=== PATIENT | female | born 1935 | race Caucasian/White ===

== ENCOUNTER 2019-01-18 12:21 | Outpatient (CLI) | payer MEDICARE, SELFPAY ==
[2019-01-18] VITALS (8 sets, daily range): BP systolic 111–148; BP diastolic 52–74; PULSE 84–92; RESP 16; TEMP 36.6; O2SAT 97–100
--- NOTE | 2019-01-18 12:23 | DI.RAD.S_ITS ---
PROCEDURE: XR LUMBAR SPINE MIN 4V INDICATIONS: Spinal stenosis, left hip pain TECHNIQUE: 5 views of the lumbar spine were acquired. COMPARISON: [facility], CR, XR PELVIS W LATERAL HIP LT, 10/20/2016, 10:23. [facility], CT, CT ABDOMEN PELVIS WITHOUT CONTRAST, 07/31/2018, 18:35. [facility], MR, L-SPINE WITHOUT CONTRAST, 03/27/2017, 15:09. FINDINGS: Bones: 5 [id number] vertebrae are present. There is severe levoscoliosis with apex at L3. No vertebral body compression fractures. No suspicious bony lesions. Severe degenerative disc disease at L1-L2, L2-L3, L3-L4 and L5-S1. There is severe facet arthropathy at L2-L3, L3-L4, L4-L5 and L5-S1. Soft tissues: Overlying bowel gas pattern is normal. Vascular calcifications consistent with atherosclerosis. Oblique images: No pars defects. IMPRESSION: 1. Severe scoliosis. 2. Severe degenerative disc disease. 3. Severe facet arthropathy. Dictated by: Italia Rodríguez M.D. on 01/18/2019 at 17:21 Approved by: Italia Rodríguez M.D. on 01/18/2019 at 17:25
--- NOTE | 2019-01-18 12:23 | DI.RAD.S_ITS ---
PROCEDURE: PAIN L/S TRANSFORAMINAL INJECT INDICATIONS: SPINAL STENOSIS FINDINGS: Fluoroscopic spot filming was performed to verify placement of spinal needles at the level(s) as labeled on the films. Appropriate location(s) of the needle tip(s) was confirmed by injection of iodinated contrast. IMPRESSION: Fluoroscopy for pain management. Dictated by: Italia Rodríguez M.D. on 01/18/2019 at 14:00 Approved by: Italia Rodríguez M.D. on 01/18/2019 at 14:01
[2019-01-18] MEDS: MIDAZOLAM 5 MG/5 ML VIAL IV (13:28)
[2019-01-18] MEDS: IOPAMIDOL 15 ML VIAL 3 ML INJ (13:32)
[2019-01-18] MEDS: BUPIVACAINE 0.25% (PF) VIAL 2 ML INJ (13:32)
[2019-01-18] MEDS: DEXAMETHASONE 10 MG/ML VIAL 20 MG INJ (13:33)
[2019-01-18] MEDS: BETAMETHASONE 30 MG/5 ML MDV 6 MG INJ (13:33)
--- NOTE | 2019-01-18 13:36 | PC.NURSE ---
ASSISTING PT OFF TABLE AND TRANSPORTING TO POST PROC AREA IN STaBLE CONDITION
--- NOTE | 2019-01-18 13:42 | P.PCN_ITS ---
Procedures Date/Time Date of procedure: 01/18/19 Time of procedure: 13:41 General Procedure description: PREOP DIAGNOSIS 1. FORMAINAL STENOSIS WITH LE SYMPTOMS POST OP DIAGNOSIS 1. FORMAINAL STENOSIS WITH LE SYMPTOMS PROCEDURES 1. FLUOROSCOPICALLY GUIDED CONTRAST CONTROLLED TRANSFORAMINAL EPIDURAL STEROID INJECTION - LEFT L4/5 PHYSICIAN: Haider Reno DO INDICATIONS: Kisha is referred by for treatment of Foraminal Stenosis with Left LE Symptoms FINDINGS Foraminal Nerve Root Compression secondary to disc disease and facet hypertrophy DESCRIPTION OF PROCEDURE: Following review of allergy and review of potential side effects and complications, including, but not necessarily limited to, infection, allergic reaction, local tissue breakdown, stroke, temporary or permanent nerve injury, paralysis, and possible , the patient indicated that the patient understood and agreed to proceed. An informed consent document was signed by the patient, witnessed by a nurse, and placed in the patient's chart. Additionally, other treatment options including medications, modalities, and physical therapy were reviewed with the patient. After review of previous anaesthesic history and IV conscious sedation the patient was deemed safe to proceed with todays procedure with IV conscious sedation as ASA class II designation. Safety time-out was performed to confirm patient ID, procedure to be performed and site of procedure. IV sedation was accomplished with a combination of 1mg of Versed administered by the RN after DO order, titrated to patient comfort during the course of the procedure while the patient remained responsive to all verbal commands In the prone position following sterile prep and drape of the lumbar region, the left L4/5 posterior neuroforamen was identified fluoroscopically. The skin was anesthetized via a 25-gauge 1.5-inch needle with 1% lidocaine solution. At this point, a 25-gauge 3.5-inch spinal needle was atraumatically introduced and advanced under fluoroscopic guidance through the posterior left L4/5 neuroforamen to approximately the anterior aspect of the canal. Depth was confirmed on lateral view. Following negative aspiration, injection of approximately 1.5 cc of Isovue 200 under live fluoroscopy in the AP view confirmed excellent flow along the nerve root, into the epidural space without vascular or intrathecal uptake observed Radiological data, including multiple fluoroscopic views of the lumbosacral spine, reveal a spinal needle at the left L4/5 posterior neuroforamen. Subsequent views show flow of contrast material flowing superiorly and inferiorly along the nerve root confirming epidural flow. Subsequently, a test dose of 1.5 cc of 1% lidocaine solution was administered and patient was observed for two minutes for signs or symptoms of complications, including abdominal pain, shortness of breath, bilateral upper or lower extremity weakness, nausea and vomiting, prior to steroid injection. At this point, a total of 3cc or 20mg of dexamethasone and 6mg of betamethasone was injected without incident. The procedure tolerated the procedure well without signs or symptoms of complications prior to transfer to the recovery area continued monitoring without incident. The patient was then transferred to the recovery area where they were observed for an appropriate time after the injection. The patient reported a VAS score of 7 prior to the procedure and a post- procedure VAS of 0. Total Fluoroscopy Time: 20.9 seconds Total Conscious Sedation Time: 24min POST OP INSTRUCTIONS The patient was provided a Pain Log to continue to record their response to the target-specific procedure prior to follow-up visit with their referring physician. Additionally, specific post-injection care instructions and a contact number to our office were provided if concerns arise regarding possible complications associated with the procedure are suspected. Haider Reno DO Complications: none
--- NOTE | 2019-01-18 13:43 | PC.NURSE ---
Pt returned via wheelchair awake and alert. Able to move from W/C to chair with standby assist. Resumed monitoring from Maria G PERRY.
== END 2019-01-18 14:19 ==
PROVIDERS: PCP Internal Medicine; Visit Provider Physical Medicine & Rehabilitation
DX: M48.061 Spinal stenosis, lumbar region without neurogenic claudication (principal); M51.16 Intervertebral disc disorders with radiculopathy, lumbar region
CPT/HCPCS: 64483; 72110; 99152; J0702; J1100; J2250

== ENCOUNTER → 2019-06-02 09:47 | Outpatient (CLI) | payer MEDICARE, SELFPAY ==
--- NOTE | 2019-06-02 09:50 | DI.RAD.S_ITS ---
PROCEDURE: XR HIP W PEL IF DONE LT MIN 4V INDICATIONS: left hip pain TECHNIQUE: AP pelvis with lateral view(s) of the bilateral hip(s). COMPARISON: None. FINDINGS: Bones: Moderate left worse than right bilateral hip joint osteoarthritic changes are seen. No acute fractures or dislocations. No evidence of avascular necrosis of femoral head. Pelvic ring appears intact. No suspicious bony lesions. Degenerative disc disease in the visualized lower lumbar spine is seen. Soft tissues: The visualized bowel gas pattern is normal. No suspicious soft tissue calcifications. IMPRESSION: Left worse than right bilateral hip joint osteophytes. No gross acute hip fracture or dislocation. No evidence of avascular necrosis. Degenerative disc disease in visualized lumbar spine. Dictated by: Charles House M.D. on 06/02/2019 at 10:55 Approved by: Charles House M.D. on 06/02/2019 at 10:56
== END ==
PROVIDERS: PCP Internal Medicine; Visit Provider Registered Nurse
DX: M16.0 Bilateral primary osteoarthritis of hip (principal); R26.81 Unsteadiness on feet; M47.816 Spondylosis without myelopathy or radiculopathy, lumbar region
CPT/HCPCS: 73522

== ENCOUNTER 2019-07-07 13:53 | Outpatient (CLI) | payer MEDICARE, SELFPAY ==
[2019-07-07] VITALS (8 sets, daily range): BP systolic 122–159; BP diastolic 44–64; PULSE 69–78; RESP 16; O2SAT 96–100
--- NOTE | 2019-07-07 13:54 | DI.RAD.S_ITS ---
PROCEDURE: PAIN L INTERLAMINAR/CAUDAL INJ INDICATIONS: SPINAL STENOSIS FINDINGS: Fluoroscopic spot filming was performed to verify placement of spinal needles at the L5-S1 level(s), as labeled on the films. Appropriate location(s) of the needle tip(s) was confirmed by injection of iodinated contrast. IMPRESSION: Fluoroscopy for pain management. Dictated by: Italia Rodríguez M.D. on 07/07/2019 at 15:50 Approved by: Italia Rodríguez M.D. on 07/07/2019 at 15:50
[2019-07-07] MEDS: MIDAZOLAM 5 MG/5 ML VIAL IV (15:00)
[2019-07-07] MEDS: BETAMETHASONE 30 MG/5 ML MDV 6 MG INJ (15:05)
[2019-07-07] MEDS: BUPIVACAINE 0.25% (PF) VIAL 2 ML INJ (15:05)
[2019-07-07] MEDS: DEXAMETHASONE 10 MG/ML VIAL 20 MG INJ (15:05)
[2019-07-07] MEDS: IOPAMIDOL 15 ML VIAL 3 ML INJ (15:05)
--- NOTE | 2019-07-07 15:07 | PC.NURSE ---
ASSISTING PT OFF TABLE AND TRANSPORTING TO POST PROC AREA IN STABLE CONDITION. PASSING PT CARE OF PT OFF TO ALEXA Mike RN. THIS RN PREPARED AND ADMINISTERED VERSED. ALL OTHER MEDS PREPARED AND ADMINISTERED BY DR. CARR.
--- NOTE | 2019-07-07 15:13 | P.PCN_ITS ---
Procedures Date/Time Date of procedure: 07/07/19 Time of procedure: 15:13 General Procedure description: PROVIDER: Haider Reno DO Operative Note PREOP DIAGNOSIS 1. HNP WITH RADICULAR FEATURES, 2. MULTILEVEL CENTRAL STENOSIS, POST OP DIAGNOSIS 1. HNP WITH RADICULAR FEATURES, 2. MULTILEVEL CENTRAL STENOSIS, PROCEDURES 1. FLUORSCOPICALLY GUIDED CONTRAST CONTROLLED INTERLAMINAR EPIDURAL STEROID INJECTION - L5/S1 PHYSICIAN: Haider Reno DO INDICATIONS Kisha is referred by Dr. Sultana for treatment of Bilateral Foraminal Stenosis L>R LE symptoms. FINDINGS Multilevel Central Spinal Stenosis with Nerve Root Compression DESCRIPTION OF PROCEDURE Fluoroscopically guided, contrast-controlled L5/S1 translaminar epidural steroid injection. Following review of allergy and review of potential side effects and complications, including, but not necessarily limited to, infection, allergic reaction, local tissue breakdown, temporary as well as permanent nerve injury, paralysis, stroke and possible , the patient indicated that the patient understood and agreed to proceed. An informed consent document was signed by the patient, witnessed by a nurse, and placed in the patient's chart. Additionally, other treatment options including modalities, medications, and physical therapy were reviewed with the patient. After review of previous anaesthesic history and IV conscious sedation the patient was deemed safe to proceed with todays procedure with IV conscious sedation as ASA class II designation. Safety time-out was performed to confirm patient ID, procedure to be performed and site of procedure. IV sedation was accomplished with a combination of 1mg of Versed administered by the RN after DO order, titrated to patient comfort during the course of the procedure while the patient remained responsive to all verbal commands. In the prone position, following sterile prep and drape of the lumbar region, the L5/S1 translaminar space was identified fluoroscopically. The skin was anesthetized via a 25-gauge, 1.5-inch needle with 1% lidocaine solution. At this point, a 22-gauge short bevel spinal needle was atraumatically introduced and advanced under fluoroscopic guidance into the region of the L5/S1 trans laminar space. Depth was confirmed on lateral view. Radiological data, including multiple fluoroscopic views of the lumbar spine, reveal a spinal needle at the L5/S1 translaminar space. Lateral views then show placement of the needle in the epidural space. Subsequent views show contrast material flowing superiorly and inferiorly in the epidural space. No vascular or intrathecal uptake is observed. At this point, using loss of resistance technique with saline and air, the epidural space was entered. This was confirmed following negative aspiration with injection of approximately 1.5 cc of Isovue 200, showing excellent epidural flow without vascular or intrathecal uptake. At this point, 1cc of 1% lidocaine solution combined with 3cc or 20mg of dexamethasone and 6mg of betamethasone was injected without incident. The patent tolerated the procedure without signs of symptoms of complications prior to transfer to the recovery area for further monitoring. The patient was then transferred to the recovery area where they were observed for an appropriate period of time after the injection. The patient reported a VAS score of 6 prior to the procedure and a post-procedure VAS of 0. Total Fluoroscopy Time: 11.8 seconds Total Conscious Sedation Time: 24min POST OP INSTRUCTIONS The patient was provided a Pain Log to continue to record their response to the target-specific procedure prior to follow-up visit with their referring physician. Additionally, specific post-injection care instructions and a contact number to our office were provided if concerns arise regarding possible complications associated with the procedure are suspected. Haider Reno DO Complications: none
--- NOTE | 2019-07-07 15:22 | PC.NURSE ---
Post procedure note: Patient arrived at 1518. VSS, O2 Sat WNL on RA. Hand off report received from Matilde James RN. Pain level 08/05. Transferred to recliner from /c with stand by assist. Denies any unusual numbness or tingling to lower extremities. Dishcharge instructions given and explained to patient and with good understanding.
== END 2019-07-07 15:57 | disposition home or self-care (01) ==
LOC: RAD 13:54
PROVIDERS: PCP Internal Medicine; Visit Provider Physical Medicine & Rehabilitation
DX: M51.17 Intervertebral disc disorders with radiculopathy, lumbosacral region (principal); M48.07 Spinal stenosis, lumbosacral region
CPT/HCPCS: 62323; 99152; J0702; J1100; J2250; J3010

== ENCOUNTER → 2019-07-21 15:31 | Outpatient (CLI) | payer MEDICARE, SELFPAY ==
--- NOTE | 2019-07-21 15:34 | DI.RAD.S_ITS ---
PROCEDURE: XR CERVICAL SPINE 4V OR 5V INDICATIONS: hyperreflexia TECHNIQUE: 6 views of the cervical spine were acquired. COMPARISON: None. FINDINGS: Bones: No fractures or dislocations to the T1 level. No suspicious bony lesions. Grade 1 spondylolisthesis at C2-C3 and C4-C5-5. Multilevel disc degeneration, severe at the C2-C3, C5-C6 and to lesser degree C6-C7 levels. Oblique views are limited secondary to difficulties in positioning which demonstrate moderate multilevel mid and lower cervical spine bilateral neural foraminal narrowing. Moderate multilevel facet joint arthropathy. Moderate multilevel uncovertebral hypertrophy. Soft tissues: Prevertebral soft tissues are normal in thickness. IMPRESSION: Multilevel degenerative change throughout the cervical spine. Dictated by: Georgi ROBERTSON Interpreted: Italia Rodríguez MD on 07/21/2019 at 15:46 Approved by: Italia Rodríguez M.D. on 07/21/2019 at 18:29
== END ==
PROVIDERS: PCP Internal Medicine; Visit Provider Registered Nurse
DX: R29.2 Abnormal reflex (principal); M41.50 Other secondary scoliosis, site unspecified; M47.812 Spondylosis without myelopathy or radiculopathy, cervical region; M16.0 Bilateral primary osteoarthritis of hip; R26.81 Unsteadiness on feet; N18.6 End stage renal disease; M48.061 Spinal stenosis, lumbar region without neurogenic claudication; M54.17 Radiculopathy, lumbosacral region; Z99.2 Dependence on renal dialysis
CPT/HCPCS: 72050; 99214

== ENCOUNTER → 2019-08-11 11:36 | Outpatient (CLI) | payer MEDICARE, SELFPAY ==
--- NOTE | 2019-08-11 | DI.MRI.S_ITS ---
PROCEDURE: MR HEAD/BRAIN WO/W CON INDICATIONS: Other amnesia TECHNIQUE: Noncontrast axial T1 spin echo, axial T2 fast spin echo, sagittal and axial FLAIR, coronal T2 fast spin echo, axial gradient echo, axial diffusion and ADC through the brain. After the administration of contrast, axial and coronal T1 spin echo with fat saturation through the brain. COMPARISON: CT, CT BRAIN WO CON, 10/20/2016, 8:43. FINDINGS: Image quality: Excellent. CSF spaces: Basal cisterns are patent. No extra-axial fluid collections. Ventricles are normal in size and shape. Brain: No midline shift. No intracranial bleeds or masses. No abnormal intracranial enhancement. There is moderate cerebral volume loss for age. There is moderate periventricular white matter chronic small vessel ischemic change. The brainstem appears normal. Diffusion-weighted images demonstrate no acute ischemic insults. No chronic ischemic insults. Normal intravascular flow voids are present. Skull and face: Calvarial marrow is normal in signal. Orbits appear normal. Sinuses: Sinuses and mastoids appear clear. IMPRESSION: 1. No acute intracranial abnormalities. 2. Cerebral volume loss and chronic microvascular ischemic changes. Dictated by: Italia Rodríguez M.D. on 08/11/2019 at 12:43 Approved by: Italia Rodríguez M.D. on 08/11/2019 at 12:47
== END ==
PROVIDERS: PCP Internal Medicine; Visit Provider Internal Medicine
DX: R41.3 Other amnesia (principal)
CPT/HCPCS: 70553